=== PATIENT | female | born 1985 | race Two or more races ===

== ENCOUNTER 2025-05-10 23:31 | Emergency (ER) | payer MEDICAID, SELFPAY ==
--- NOTE | 2025-05-10 23:41 | XR_ITS ---
Examination: CT brain head without contrast. 2-D sagittal coronal reconstructions Date and time of exam:May 11, 2025 0010 hours INDICATIONS: History altered mental status today CTDI: vol (mGy):49.5 DLP: (mGycm):962 Technique: Multiple CT axial sections of the brain have been obtained, 5 mm slice thickness. Contrast has not been administered. 2-D sagittal, coronal reconstructions have been obtained Low dose protocols were performed. One or more of the following dose reduction techniques were used; automated exposure control, adjustment of the mA and/or KV according to patient size, use of iterative reconstruction technique. Findings: No significant ventricular enlargement. Intra-axial or extra-axial hemorrhage density is not seen. No mass effect or midline shift Basal cisterns are not remarkable. Fourth ventricle is midline. Cranial vault intact. Impression: Negative for acute hemorrhage, mass effect or midline shift. Chronic left maxillary antral and ethmoid sinusitis
[2025-05-10 23:42] VITALS: BP 138/83; PULSE 70; RESP 16; TEMP 36.7; O2SAT 98
[2025-05-11 00:17] LABS: HCG Qualitative,Urine Negative
--- NOTE | 2025-05-11 01:03 | PRELIM_ITS ---
CT scan of the head without intravenous contrast (axial sections with sagittal and coronal reformats). May 11, 2025 0010 hours Clinical History: Headache Comparison: No prior study is available for comparison. Findings: No evidence of intracranial hemorrhage, mass effect or midline shift. The ventricles and CSF spaces are unremarkable. Cavum septum pellucidum and vergae are seen, representing an anatomic variant. The calvarium is unremarkable.There is mild mucosal thickening with fluid level in the left maxillary sinus. The mastoid air cells and the other visualized paranasal sinuses are clear. Impression: No evidence of intracranial hemorrhage, mass effect or midline shift. Other findings as described above. Report Electronically Signed By: Yemi Staton 05/11/2025 1:03:36 AM [EST]
[2025-05-11] MEDS: KETOROLAC INJ 60 MG/2 ML VIAL 30 MG IM (01:32)
[2025-05-11] MEDS: ONDANSETRON ODT 4 MG TABRAP PO (01:33)
[2025-05-11] MEDS: AMOXICILLIN/POT CLAV 875 TABLET 1 TAB PO (01:33)
--- NOTE | 2025-05-11 01:39 | PD.EDHA ---
ED Headache RME/HPI General Chief Complaint: General Adult/Misc Complain Stated Complaint: NOSE PAIN,HEADACHE Time Seen by Provider: 05/10/25 23:40 Arrival date/time: 05/10/25 23:31 This is a case of a 39-year-old female who came into the emergency room due to frontal headache and sinus tenderness and sinus pain for 1 day history of present illness started 1 week prior to arrival in the emergency room when the patient is having nasal congestion and nasal discharge persistence of the symptoms now with frontal headache sinus tenderness and sinus pain with postnasal drip no cough no ear pain no sore throat thus decided to start consult here in the emergency room denies any fever or chills Limitations: no limitations Related Data Previous Rx's ?Medication ?Instructions ?Recorded naproxen 500 mg tablet 500 mg PO BID PRN pain #30 tabs 08/16/24 amoxicillin 875 mg-potassium 1 tab PO Q12H 10 days #20 tabs 05/11/25 clavulanate 125 mg tablet fluticasone propionate 50 1 spray intranasal BID #16 grams 05/11/25 mcg/actuation nasal spray,suspension (Flonase Allergy Relief) prednisone 20 mg tablet See Taper PO QDAY 5 days #5 tabs 05/11/25 pseudoephedrine HCl 120 mg 120 mg PO Q12H PRN nasal 05/11/25 tablet,extended release (Sudafed congestion #20 tabs 12 Hour) Allergies Allergy/AdvReac Type Severity Reaction Status Date / Time No Known Allergies Allergy Verified 05/10/25 23:34 Review of Systems Review of Systems Systems Reviewed: All systems reviewed, normal except as documented Constitutional Constitutional: Reports system reviewed and no additional complaints, except as documented, Reports as per HPI, Denies chills, Denies fever(s) and Reports headache(s) ENT Ears, Nose, Mouth, and Throat: Reports system reviewed and no additional complaints, except as documented, Reports as per HPI, Denies abnormal hearing, Denies bleeding gums, Denies change in voice, Denies dental pain, Denies disequilibrium, Denies dizziness, Denies dry mouth, Denies dysphagia, Denies ear discharge, Denies otalgia, Denies epistaxis, Reports facial pain, Denies halitosis, Reports headache(s), Denies hearing loss, Denies hoarseness, Denies lip swelling, Denies mouth lesions, Denies mouth pain, Reports nasal congestion, Reports nasal discharge, Denies nasal obstruction, Denies nasal trauma, Denies neck mass, Denies neck pain, Reports nose pain, Denies odynophagia, Reports post nasal drip, Reports sinus pain, Reports sinus pressure, Denies sore throat, Denies throat swelling, Denies tinnitus, Denies tongue swelling and Denies vertigo Cardiovascular Cardiovascular: Reports system reviewed and no additional complaints, except as documented and Reports as per HPI Respiratory Respiratory: Reports system reviewed and no additional complaints, except as documented and Reports as per HPI Gastrointestinal Gastrointestinal: Reports system reviewed and no additional complaints, except as documented, Reports as per HPI, Denies dysphagia and Denies odynophagia Musculoskeletal Musculoskeletal: Reports system reviewed and no additional complaints, except as documented, Reports as per HPI and Denies neck pain Neurologic Neurologic: Reports system reviewed and no additional complaints, except as documented, Reports as per HPI, Denies abnormal hearing, Denies disequilibrium, Denies dizziness, Reports headache(s) and Denies vertigo Allergic/Immunologic Allergic/Immunologic: Denies lip swelling, Denies throat swelling and Denies tongue swelling Past Medical History Social History SMOKING STATUS: Never smoker ED Exam General Limitations: Present no limitations General appearance: Present alert, in no apparent distress and other (Patient is awake alert oriented not in distress nontoxic looking well-hydrated well-nourished) Head Head exam: Present atraumatic, normocephalic and normal inspection Eye Eye exam: Present normal appearance, PERRL, EOMI and other (no pappiledema no hyphema) ENT ENT exam: Present normal exam, normal oropharynx, mucous membranes moist and other (Ear and throat exam is normal noted positive frontal and maxillary sinus tenderness noted nostrils and turbinates were swollen and erythema no nasal septum deviation no nasal polyps) Neck Neck exam: Present normal inspection, full ROM, trachea midline and other (Negative for meningeal sign); Absent tenderness, meningismus, lymphadenopathy or thyromegaly Chest Chest inspection: Present normal inspection and symmetric chest wall rise; Absent tenderness Respiratory Respiratory exam: Present normal lung sounds bilaterally; Absent respiratory distress, wheezes, stridor, accessory muscle use or prolonged expiratory phase Cardiovascular Cardiovascular exam: Present regular rate, normal rhythm and normal heart sounds; Absent bradycardia, tachycardia, irregular rhythm, systolic murmur or diastolic murmur Abdominal Exam Abdominal exam: Present soft and normal bowel sounds; Absent distention, tenderness, guarding, rebound, rigidity, diminished bowel sounds, hyperactive bowel sounds or hypoactive bowel sounds Extremities Exam Extremities exam: Present normal inspection and full ROM Back Exam Back exam: Present normal inspection and full ROM Neurological Exam Neurological exam: Present alert, oriented X3, CN II-XII intact, normal gait, reflexes normal and other (Awake alert oriented x 4 no focal deficit GCS 15/15 steady gait memory intact no facial droop no slurring of speech motor or sensory reflex were all normal negative Babinski CN II to XII is normal); Absent motor sensory deficit Psychiatric Psychiatric exam: Present normal affect and normal mood Skin Skin exam: Present warm, dry, intact and normal color Course Quality Measures none Orders Category Date Time Status CT head/brain wo con Stat Exams 05/10/25 23:41 Taken HCG Qualitative,Urine Stat Lab 05/10/25 23:54 Completed Amoxicillin/Pot Clav 875 [Augmentin 875] Med 05/11/25 01:19 Discontinued 1 tab PO X1 ONE Ketorolac Inj [Toradol Inj] Med 05/11/25 01:19 Discontinued 30 mg IM X1 ONE Ondansetron Odt [Zofran Odt] Med 05/11/25 01:19 Discontinued 4 mg PO X1 ONE Vital Signs Vital signs: Vital Signs Temperature 98.1 F 05/10/25 23:42 Pulse Rate 70 05/10/25 23:42 Respiratory Rate 16 05/10/25 23:42 Blood Pressure 138/83 H 05/10/25 23:42 Pulse Oximetry (%) 98 05/10/25 23:42 Oxygen Delivery Method Room Air 05/10/25 23:42 Patient is afebrile not tachycardic not tachypneic BP stable not hypoxic oxygen saturation is 98% in room air Headache MDM Narrative MDM Narrative:: This is a case of a 39-year-old female who came into the emergency room due to frontal headache and sinus tenderness and sinus pain for 1 day history of present illness started 1 week prior to arrival in the emergency room when the patient is having nasal congestion and nasal discharge persistence of the symptoms now with frontal headache sinus tenderness and sinus pain with postnasal drip no cough no ear pain no sore throat thus decided to start consult here in the emergency room denies any fever or chills physical examination patient is awake alert oriented not in distress nontoxic looking well-hydrated well-nourished pertinent PE exam noted no contusion no hematoma nostrils and turbinates were swollen and red no nasal septal deviation no nasal polyp positive tenderness frontal and maxillary sinus neurological exam is normal awake alert oriented x 4 no focal deficit GCS 15/15 steady gait memory intact no slurring speech no facial droop steady gait motor sensory reflexes in all extremities were normal negative Babinski CN II to XII is normal the rest of the physical examination neurological exam is normal and unremarkable hCG is negative patient is not CT scan showed normal unremarkable only noted a mild mucosal thickening and fluid level on maxillary sinus suggestive of acute sinus infection this point patient will be treated as her headache possible sinus headache due to acute sinus infection after giving Toradol and Zofran patient condition markedly improved patient was also started with Augmentin for acute sinus infection patient will follow-up with PCP in 2 days for reevaluation and to be referred to ENT for further evaluation and treatment of acute sinus infection and for any worsening symptoms or any emergent concern return precaution in the emergency room immediately or call 911 Patient was discharged with comfortable condition walking with stable gait. Patient verbalized no further complains explained diagnosis and answered patient question. Patient is comfortable with the proposed management plan including the need to follow up with his/her primary care physician and any specialist if applicable Discussed patient for any urgent condition or worsening sx, He/She needed to go to emergency room immediately or call 911. Patient acknowledge the responsibility to follow up as instructed and to monitor her/his symptoms. For any persistence of the symptoms for more than 3-5 days return precaution advised. Discussed the result of the test and was given printed discharge instruction Patient data External records reviewed:: [facility] previous records Clinical information provided by:: patient Social determinants that could affect healthcare access:: none Patient has the following chronic illnesses:: None How is presenting disease/condition affected by chronic disease/condition?: no chronic disease Evaluation data The following diagnostics were reviewed and interpreted by me:: lab results and radiology exam(s) Lab and/or radiology exams considered but not ordered:: Reviewed Interpretation Summary: Reviewed Medications / Prescriptions Medications or Prescriptions considered but not ordered:: Given Medication administrations:: Medication Administration History Discontinued Medications Amoxicillin/Clavulanate Potassium (Amoxicillin/Pot Clav 875 Tablet) 1 tab PO X1 ONE Stop: 05/11/25 01:20 Last Admin: 05/11/25 01:33 Dose: 1 tab Documented By: PIPER Ketorolac Tromethamine (Ketorolac Inj 60 Mg/2 Ml Vial) 30 mg IM X1 ONE Stop: 05/11/25 01:20 Last Admin: 05/11/25 01:32 Dose: 30 mg Documented By: PIPER Ondansetron HCl (Ondansetron Odt 4 Mg Tabrap) 4 mg PO X1 ONE; Protocol Stop: 05/11/25 01:20 Last Admin: 05/11/25 01:33 Dose: 4 mg Documented By: BD Given Consultations Consultation(s) initiated? (list below): No Diagnosis Differential diagnosis headache: migraine, tension headache, headache and sinusitis Most likely diagnosis given after review of the tests above:: Sinus headache Admission Indicated Admission indicated?: not indicated Explain why admission is indicated or not indicated:: Not indicated Admission Request Was there a request for admission?: No Admission Attestation Admission request attestation: Not indicated Disposition Plan Disposition Plan: Discharge Discharge Attestation Discharge Attestation: The patient and all family members were given an opportunity to ask questions and understood the discharge instructions. Discharge instructions specifically effects, indications for sooner follow up or return to the emergency department, and the expected course of current diagnosis. Patient condition: Stable Discharge Plan Plan Patient Disposition: HOME (Self Care) Patient condition on transfer: Stable Prescriptions/Referrals Prescriptions/Med Rec: New amoxicillin-pot clavulanate 875-125 mg tablet 1 tab PO Q12H 10 Days Qty: 20 0RF pseudoephedrine HCl [Sudafed 12 Hour] 120 mg tablet extended release 120 mg PO Q12H PRN (Reason: nasal congestion) Qty: 20 0RF fluticasone propionate [Flonase Allergy Relief] 50 mcg/actuation spray,suspension 1 spray intranasal BID Qty: 16 0RF Rx Instructions: administer into each nostril prednisone 20 mg tablet See Taper PO QDAY 5 Days Qty: 5 0RF Taper: Prednisone Taper 20 mg DAILY for 2 Days and 0 Hour 10 mg DAILY for 2 Days and 0 Hour 5 mg DAILY for 7 Days and 0 Hour No Action naproxen 500 mg tablet 500 mg PO BID PRN (Reason: pain) Qty: 30 0RF Referrals: No Primary/Family,Physician [Primary Care Provider] - In 1 week Problem List Clinical Impression: Headache, Acute sinus infection Patient/Caregiver Discharge Instructions Education Materials: Self-Care for Headaches, ED Sinusitis (Antibiotic Treatment) Additional Instructions: Follow-up with your primary care physician in 2 days for reevaluation and to be referred to ENT for further evaluation and treatment of acute sinus infection recurrence worsening symptoms or any emergent concern call 911 or go to the nearest emergency room it is also important to be referred to neurologist for further evaluation of your headache take your medication as directed steam inhalation is advised finish the course of antibiotic Print Language: Congolese Stand Alone Forms: [employer] Award Info., Patient Portal Info Letter PA/SPEARER Supervising Physician PA/SPEARER Supervising Physician: DR rai
== END 2025-05-11 01:36 | disposition home or self-care (01) ==
PROVIDERS: Nurse Practitioner Family; Emergency Provider Emergency Medicine
DX: J01.90 Acute sinusitis, unspecified (principal)
CPT/HCPCS: 70450; 81025; 96372; 99283; J1885; Q0162; A9270